=== PATIENT | female | born 1945 | race Caucasian/White ===

== ENCOUNTER 2016-07-14 13:15 | Outpatient (RCR) | payer MEDICARE, OTHER ==
[~2016-07-14 13:15] MED LIST: ALPRAZOLAM; AMITIZA24 MCG PO; ASPIR-LOW81 MG PO; ASPIRIN 32325 MG/TA1 PO; BACLOFEN10 MG PO; CALTRATE 600 +1 TAB PO; CARBAMAZEPINE200 M1 PO; COLACE 100100 MG/CAP PO; CYMBALTA 30MG30 MG PO; CYMBALTA 60MG60 MG PO; CYMBALTA PO; EVISTA 60MG60 MG/TAB PO; FERROUS SU325 MG/TAB PO; FOLIC ACID0.4 MG PO; GABAPENTIN600 MG PO; INTRATHECAL PUMP; K-99595 MG PO; KEPPRA500 MG PO; KLOR-CON M2020 MEQ PO; LASIX 20MG TABL20 MG PO; LASIX20 MG PO; LYRICA75 MG PO; MAGIC MOUTH PO; MAGNESIUM100 MG PO; MICRO-K 1010 MEQ; MILK OF MA400 MG/52; MULTIPLE VITAMI1 TAB PO; MVI; NAPROXEN250 MG PO; NATURAL POTASS595 MG PO; NEURONTIN PO; NEURONTIN300 MG/CAP PO; NEURONTIN400 MG/CAP PO; NEURONTIN600 MG/TAB PO; NORCO 325 MG-7.1 TAB PO; PERCOCET 325 MG1 TA2 PO; PERCOCET 325 MG1 TAB PO; PERCOCET 5/321 UDTAB PO; PLAQUENIL 200M200 MG PO; POTASSIUM75 MG PO; PRED FORTE 1 ML1 ML OP; RESTASIS 60VL OP; ROXICODONE 55 MG/TAB PO; SEE INSTRUCTIONS IT; SEE LIST; SEROQUEL 2525 MG/TAB PO; SYNTHROID0.112 MG/T PO; SYNTHROID0.175 MG PO; TEGRETOL 1100 MG/TAB PO; TEGRETOL 2200 MG/TAB PO; TOPAMAX 25MG25 MG PO; TOPAMAX100 MG PO; TOPAMAX50 MG PO; TOPIRAMATE PO; TRAZODONE50 MG PO; UROXATRAL10 M1 PO; VITAMIN C BUFF500 MG PO; VITAMIN C1 TAB PO; VITAMIN D1000 IU PO; XANAX0.25 MG PO; [UNRECOGNIZED DRUG - OTHER] PO; femhrt
== END 2016-07-20 | disposition home or self-care (01) ==
LOC: WSOT
DX: Z47.89 Encounter for other orthopedic aftercare (principal); M67.843 Other specified disorders of tendon, right hand
CPT/HCPCS: G8987-GO; G8988-GO

== ENCOUNTER 2016-09-23 14:30 | Outpatient (RCR) | payer MEDICARE, OTHER | END 2016-10-26 | disposition still patient (30) | LOC: WSOT | DX: Z47.89 Encounter for other orthopedic aftercare (principal); M67.843 Other specified disorders of tendon, right hand | CPT/HCPCS: G8987-GO; G8988-GO ==

== ENCOUNTER → 2016-12-21 | Outpatient (CLI) | payer MEDICARE, OTHER | LOC: MC.RAD 13:58 | DX: Z12.31 Encounter for screening mammogram for malignant neoplasm of breast (principal) ==

== ENCOUNTER 2017-08-02 14:58 | Outpatient (CLI) | payer MEDICARE, OTHER ==
[~2017-08-02] VITALS: Ht 157.5 cm; Wt 50.0 kg
[~2017-08-02 14:58] MED LIST changes: +MAG OX 250 PO; -MAGNESIUM100 MG PO; -VITAMIN D1000 IU PO; +VITAMIND3 5000 PO
[2017-08-02 16:20] VITALS: BP 121/63; PULSE 62; TEMP 98.4
[2017-08-02] MEDS ORDERED: SYNTHROID0.137 MG PO (16:47)
[2017-08-02] MEDS ORDERED: PROBIOTIC FORMU1 CAP PO (16:48)
[2017-08-02] MEDS ORDERED: MULTI VITAMINS1 TAB PO (16:49)
[2017-08-02] MEDS ORDERED: NATURAL IRON65 MG PO (16:50)
[2017-08-02] MEDS ORDERED: ASPIRIN E.C. 8181 MG PO (16:52)
[2017-08-02] MEDS ORDERED: DESYREL 50MG50 MG PO (16:59)
== END 2017-08-02 17:00 | disposition home or self-care (01) ==
LOC: EUO 14:58
DX: M81.0 Age-related osteoporosis without current pathological fracture (principal)
CPT/HCPCS: J3489

== ENCOUNTER → 2018-02-13 | Outpatient (CLI) | payer MEDICARE, OTHER ==
[~2018-02-13] MED LIST changes: +ASPIRIN E.C. 8181 MG PO; +DESYREL 50MG50 MG PO; +MULTI VITAMINS1 TAB PO; +NATURAL IRON65 MG PO; +PROBIOTIC FORMU1 CAP PO; +SYNTHROID0.137 MG PO
== END ==
LOC: MC.RAD 01-04 11:40
DX: Z12.31 Encounter for screening mammogram for malignant neoplasm of breast (principal)

== ENCOUNTER → 2018-02-26 | Outpatient (CLI) | payer MEDICARE, OTHER | LOC: COL.RAD 10:43 | DX: M41.84 Other forms of scoliosis, thoracic region (principal); M41.86 Other forms of scoliosis, lumbar region; M81.0 Age-related osteoporosis without current pathological fracture; M51.36 Other intervertebral disc degeneration, lumbar region; Z96.643 Presence of artificial hip joint, bilateral ==

== ENCOUNTER 2019-03-06 19:49 | Emergency (ER) | payer MEDICARE, OTHER ==
[~2019-03-06] VITALS: Ht 157.5 cm; Wt 49.1 kg
[2019-03-06 20:26] LABS: BASO # 0.1 (0.0-0.2); BASO % 0.9 % (0.0-2.0); GRAN # 3.5 (1.4-6.5); GRAN % 50.5 % (42.2-75.2); HEMOGLOBIN 10.7 g/dl (12.5-16.0); LYMPH # 2.7 (1.2-3.4); LYMPH % 38.6 % (20.0-51.0); MEAN CELL VOLUME 105 fl (80.0-100.0); MEAN CORPUSCULAR HEMOGLOBIN 34 pg (27.0-31.0); MEAN CORPUSCULAR HGB CONC 32 g/dl (33.0-37.0); MEAN PLATELET VOLUME 10.3 fl (7.4-10.4); MONO # 0.7 (0.1-0.6); MONO % 9.6 % (1.7-9.3); PLATELET COUNT 254 K/mm3 (130-400); RED BLOOD COUNT 3.18 M/mm3 (4.10-5.30); REDCELL DISTRIBUTION WIDTH-CV 12.8 % (11.5-14.5)
[2019-03-06 20:30] LABS: HEMATOCRIT 33.3 % (37.0-47.0)
[2019-03-06 20:40] LABS: ALANINE AMINOTRANSFERASE 34 U/L (9-52); ALBUMIN 4.4 gm/dL (3.5-5.0); ALKALINE PHOSPHATASE 65 U/L (50-136); ANION GAP 8 mmol/L (7-16); AST,SGOT 43 U/L (15-37); BILIRUBIN,TOTAL 0.5 mg/dL (0.0-1.0); BLOOD UREA NITROGEN 10 mg/dL (7-17); CALCIUM 9.1 mg/dL (8.4-10.2); CARBON DIOXIDE 27 mmol/L (22-30); CHLORIDE 106 mmol/L (98-107); CREATININE, serum 0.53 (0.52-1.25); GLUCOSE 86 mg/dL (74-106); POTASSIUM 3.4 mmol/L (3.4-5.0); SODIUM 140 mmol/L (137-145); TOTAL PROTEIN 7.1 gm/dL (6.4-8.2)
[2019-03-06 20:51] LABS: TROPONIN-I < 0.012 ng/mL (0.000-0.035)
[2019-03-06 21:46] VITALS: BP 105/66; PULSE 81; TEMP 98.2
== END 2019-03-06 21:45 | disposition home or self-care (01) ==
LOC: COL.ER 19:49
PROVIDERS: Emergency Medicine
DX: I47.1 Supraventricular tachycardia (principal); M79.7 Fibromyalgia; G62.9 Polyneuropathy, unspecified; Z79.82 Long term (current) use of aspirin

== ENCOUNTER → 2019-03-07 | Outpatient (CLI) | payer MEDICARE, OTHER | LOC: MC.RAD 14:34 | DX: Z12.31 Encounter for screening mammogram for malignant neoplasm of breast (principal) ==

== ENCOUNTER → 2019-03-27 | Outpatient (CLI) | payer MEDICARE, OTHER | LOC: COL.CARD 03-19 14:00 | DX: I48.0 Paroxysmal atrial fibrillation (principal) ==

== ENCOUNTER → 2019-05-09 | Outpatient (CLI) | payer MEDICARE, OTHER | LOC: COL.RAD 05-02 11:30 | DX: Z01.812 Encounter for preprocedural laboratory examination (principal); I65.23 Occlusion and stenosis of bilateral carotid arteries | CPT/HCPCS: Q9967 ==

== ENCOUNTER 2019-05-10 17:20 | Emergency (ER) | payer MEDICARE, OTHER ==
[~2019-05-10] VITALS: Ht 157.5 cm; Wt 48.2 kg
[2019-05-10 18:23] LABS: ALANINE AMINOTRANSFERASE 21 U/L (9-52); ALBUMIN 4.4 gm/dL (3.5-5.0); ALKALINE PHOSPHATASE 58 U/L (50-136); ANION GAP 8 mmol/L (7-16); AST,SGOT 31 U/L (15-37); BILIRUBIN,TOTAL 0.4 mg/dL (0.0-1.0); BLOOD UREA NITROGEN 14 mg/dL (7-17); CALCIUM 8.8 mg/dL (8.4-10.2); CARBON DIOXIDE 28 mmol/L (22-30); CHLORIDE 105 mmol/L (98-107); CREATININE, serum 0.63 (0.52-1.25); GLUCOSE 89 mg/dL (74-106); POTASSIUM 3.9 mmol/L (3.4-5.0); SODIUM 141 mmol/L (137-145); TOTAL PROTEIN 7.1 gm/dL (6.4-8.2)
[2019-05-10 18:28] LABS: BASO # 0.1 (0.0-0.2); GRAN # 3.6 (1.4-6.5); GRAN % 52.1 % (42.2-75.2); HEMOGLOBIN 11.6 g/dl (12.5-16.0); LYMPH # 2.8 (1.2-3.4); LYMPH % 40.3 % (20.0-51.0); MEAN CELL VOLUME 101 fl (80.0-100.0); MEAN CORPUSCULAR HEMOGLOBIN 32 pg (27.0-31.0); MEAN CORPUSCULAR HGB CONC 32 g/dl (33.0-37.0); MEAN PLATELET VOLUME 10.5 fl (7.4-10.4); MONO # 0.4 (0.1-0.6); MONO % 6.3 % (1.7-9.3); PLATELET COUNT 209 K/mm3 (130-400); RED BLOOD COUNT 3.62 M/mm3 (4.10-5.30)
[2019-05-10 18:32] LABS: HEMATOCRIT 36.7 % (37.0-47.0)
[2019-05-10 18:34] LABS: INR 1.1 (0.8-3.0); PROTHROMBIN TIME 13.3 SECONDS (9.7-12.8); TROPONIN-I < 0.012 ng/mL (0.000-0.035)
[2019-05-10 18:37] LABS: PARTIAL THROMBOPLASTIN TIME 37.8 SECONDS (26.0-37.0)
[2019-05-10 19:20] VITALS: BP 115/69; PULSE 75; TEMP 98.4
== END 2019-05-10 19:24 | disposition home or self-care (01) ==
LOC: COL.ER 17:20
PROVIDERS: Emergency Medicine
DX: I48.0 Paroxysmal atrial fibrillation (principal); E03.9 Hypothyroidism, unspecified; M81.0 Age-related osteoporosis without current pathological fracture; L93.0 Discoid lupus erythematosus; Z79.01 Long term (current) use of anticoagulants

== ENCOUNTER 2019-09-16 01:26 | Inpatient (IN) | payer MEDICARE, OTHER ==
[2019-09-16] VITALS (875 sets, daily range): BP systolic 91–110; BP diastolic 60–78; PULSE 73–99; TEMP 97–98.4; O2SAT 59–100
[~2019-09-16] VITALS: Ht 157.5 cm; Wt 48.0 kg
[~2019-09-16 01:26] MED LIST changes: -COLACE 100100 MG/CAP PO; -NEURONTIN600 MG/TAB PO; +SURFAK 240240 MG/CAP PO; +SYNTHROID 0.10.15 MG PO; -SYNTHROID0.137 MG PO
[2019-09-16 02:00] LABS: BASO # 0.1 (0.0-0.2); BASO % 0.7 % (0.0-2.0); GRAN # 4.6 (1.4-6.5); GRAN % 65.7 % (42.2-75.2); HEMATOCRIT 29.9 % (37.0-47.0); HEMOGLOBIN 9.6 g/dl (12.5-16.0); LYMPH # 1.5 (1.2-3.4); LYMPH % 22.2 % (20.0-51.0); MEAN CELL VOLUME 99 fl (80.0-100.0); MEAN CORPUSCULAR HEMOGLOBIN 32 pg (27.0-31.0); MEAN CORPUSCULAR HGB CONC 32 g/dl (33.0-37.0); MEAN PLATELET VOLUME 10.7 fl (7.4-10.4); MONO # 0.7 (0.1-0.6); MONO % 10.2 % (1.7-9.3); PLATELET COUNT 193 K/mm3 (130-400); RED BLOOD COUNT 3.03 M/mm3 (4.10-5.30); REDCELL DISTRIBUTION WIDTH-CV 12.1 % (11.5-14.5)
[2019-09-16 02:02] LABS: INR 1.5 (0.8-3.0); PROTHROMBIN TIME 17.8 SECONDS (9.7-12.8)
[2019-09-16 02:08] LABS: BILIRUBIN,TOTAL 0.6 mg/dL (0.0-1.0); CALCIUM 9.3 mg/dL (8.4-10.2); CREATININE, serum 0.6 (0.52-1.25); POTASSIUM 4.4 mmol/L (3.4-5.0); TOTAL PROTEIN 6.6 gm/dL (6.4-8.2)
[2019-09-16 02:19] LABS: TROPONIN-I 0.022 ng/mL (0.000-0.035)
[2019-09-16 02:41] LABS: ALCOHOL(ethanol),MEDICAL < 10 mg/dL
[2019-09-16 03:31] LABS: COLLECTION METHOD CLEAN CATCH
[2019-09-16 03:36] LABS: MUCOUS Present /lpf; PH 5 (5-8); SQUAMOUS EPITHELIAL 0-2 /hpf; URINE APPEARANCE Clear; URINE BACTERIA None Seen /hpf; URINE BILIRUBIN Negative (NEGATIVE); URINE BLOOD Negative (NEGATIVE); URINE COLOR Amber; URINE GLUCOSE Negative (NEGATIVE); URINE KETONE 1+ (NEGATIVE); URINE LEUKOCYTE ESTERASE Negative (NEGATIVE); URINE NITRATE Negative (NEGATIVE); URINE PROTEIN(semi-quant) Negative (NEGATIVE); URINE UROBILINOGEN Negative (NEGATIVE)
[2019-09-16] MEDS ORDERED: CARDIZEM120 MG PO (04:42)
[2019-09-16] MEDS ORDERED: ELIQUIS 5MG PO (04:43)
[2019-09-16] MEDS ORDERED: AZULFIDINE500 MG/TAB PO (04:43)
[2019-09-16] MEDS ORDERED: PLAQUENIL 200M200 MG PO (04:44)
[2019-09-16] MEDS ORDERED: CYMBALTA 60MG60 MG PO (04:45)
[2019-09-16] MEDS ORDERED: LINZESS145CAP PO (04:46)
[2019-09-16] MEDS ORDERED: PROBIOTIC-10 370 MG PO (04:47)
[2019-09-16] MEDS ORDERED: COMPLETE MULTI1 TA1 PO (04:48)
[2019-09-16] MEDS ORDERED: LOVAZA1 GM PO (04:49)
[2019-09-16] MEDS ORDERED: RESTASIS 60VL (04:52)
[2019-09-16] MEDS ORDERED: LIPITOR 10MG10 MG PO (04:54)
--- NOTE | 2019-09-16 06:05 | NUR ---
SOMULENT. VS WNL. ROUSES BRIEFLY TO VOICE. FOLLOWS COMMANDS. NARCAN ADMIN. CONTINUES DROWSY, BUT SEEMS SLIGHTLY MORE ALERT. DENIES PAIN AT AREA OF LACERATION.
--- NOTE | 2019-09-16 07:30 | NUR ---
Report received from KAMRNA Wasserman. pT in bed resting with eyes closed, will continue to monitor.
--- NOTE | 2019-09-16 11:24 | NUR ---
JAMES met with the patient to discuss discharge plan. The patient lives in [place] with her , Bruno (ph#[phone]). Her son, Rodney, has been staying with them during the COVID outbreak to help them out. She reports independence with ADLs and has a cane and walker. The patient's PCP is Dr. Tabitha Crook and she receives her medications at [facility]. She reports no difficulties obtaining her meds. The patient does not have advanced directives in EMR, but she reports that she does have them completed. She could not recall who she had designated as her DPOA-HC. The patient would like to return back home upon discharge. JAMES then contacted and confirmed the above information from her , Bruno. Bruno reports that he is the patient's DPOA-HC. He has no concerns with the patient returning back home upon discharge. PT/OT have been ordered. SW to continue to follow.
--- NOTE | 2019-09-16 11:37 | NUR ---
Karol crawforded. Dr. Sanchez roundsusan during visit. Pt is more alert and awake now, able to take some breakfast wihtout difficulty. Able to answer all orientation questions except the specific day in September, able to tell me its September 2019 though. Denies pain. Has no recollection of last night but does reember coming in the ambulance. Disucssed lacerations on pt, she did not recall getting them. Called with an update and provided, he states has severe fibromyalgia and difficulty sleeping often at night. PT denies any pain now, resting quietly in bed. Will continue to monitor.
--- NOTE | 2019-09-16 14:18 | NUR ---
Pt contineus to be very somnolent, called Dr. Sanchez and gave 1x order for narcan, provided. Pt did awaken a bit more after administration of Narcan. Pt is drowsy. Critical lab value called to Laura as well, ultrasound in room right now doing dopplar. Will continue to monitor.
[2019-09-16 15:48] LABS: TRICYCLIC ANTIDEPRESS URINE NEGATIVE
--- NOTE | 2019-09-16 16:00 | NUR ---
Called Dr. Espinoza office and discussed pain pump, per nurse at the office pt has pain pump at set rate for years that was changed out last monday and set back at regular rate. there is a possibility that it is malfunctioning. Called Laura and updated. Pt remains very somnolent and wanted hime to reassess, he feels she is just very sleepy but no need for further narcan at this time.
--- NOTE | 2019-09-16 17:59 | NUR ---
Pt continues to be very drowsy, resting in bed. Denies needs, will give shift report to nightshift nurse who will resume care.
[2019-09-17] VITALS (886 sets, daily range): BP systolic 97–116; BP diastolic 55–63; PULSE 75–96; TEMP 96.6–98.5; O2SAT 69–100
--- NOTE | 2019-09-17 07:15 | NUR ---
Bedside shift report received from KAMRAN Alfaro. Patient is sitting up in bed, awake, alert, following commands and responding appropriately. Full assessment completed. Vital signs stable. Bed in lowest position. Side rails up x3. Call light within reach.
[2019-09-17 10:25] LABS: MEAN CELL VOLUME 102 fl (80.0-100.0); MEAN CORPUSCULAR HEMOGLOBIN 33 pg (27.0-31.0); MEAN CORPUSCULAR HGB CONC 32 g/dl (33.0-37.0); MEAN PLATELET VOLUME 10.7 fl (7.4-10.4); PLATELET COUNT 139 K/mm3 (130-400); RED BLOOD COUNT 3.38 M/mm3 (4.10-5.30); REDCELL DISTRIBUTION WIDTH-CV 12.4 % (11.5-14.5)
[2019-09-17 10:28] LABS: CALCIUM 8.1 mg/dL (8.4-10.2); CREATININE, serum 0.35 (0.52-1.25); POTASSIUM 3.3 mmol/L (3.4-5.0)
[2019-09-17 10:29] LABS: HEMATOCRIT 34.3 % (37.0-47.0)
[2019-09-17 11:35] LABS: BAND 25 % (0-10); LYMPHOCYTE 15 % (20.0-51.0); NEUTROPHILS 54 % (42.0-75.2); PLATELET ESTIMATE NORMAL (NORMAL); TOXIC GRANULATION PRESENT
[2019-09-17 11:36] LABS: HYPOCHROMIA 1+
[2019-09-17] MEDS ORDERED: CARDIZEM 90MG T90 MG PO (13:39)
[2019-09-17] MEDS ORDERED: SYNTHROID0.125 MG/T PO (13:41)
--- NOTE | 2019-09-17 14:14 | NUR ---
The hospitalist informed JAMES that he would recommend home health for the patient. JAMES contacted the patient's , Bruno, to discuss home health. Bruno was agreeable to this. Bruno chose [facility]. JAMES contacted and faxed a referral to Lyric at [facility]. SW awaiting their screen.
--- NOTE | 2019-09-17 14:29 | NUR ---
Lyric, at [facility], reports that they are able to accept the patient for services.
--- NOTE | 2019-09-17 19:35 | NUR ---
Bedside shift report given to KAMRAN Nazario. Patient has no acute changes throughout the shift and has no complaints or concerns. Care handed over at this time.
[2019-09-18] VITALS (401 sets, daily range): BP systolic 122–164; BP diastolic 49–89; PULSE 59–100; TEMP 97.9–98.9; O2SAT 65–100
[2019-09-18 06:22] LABS: BASO # 0.1 (0.0-0.2); BASO % 0.5 % (0.0-2.0); GRAN # 9.7 (1.4-6.5); GRAN % 79.5 % (42.2-75.2); LYMPH # 1.5 (1.2-3.4); LYMPH % 12.4 % (20.0-51.0); MEAN CELL VOLUME 102 fl (80.0-100.0); MEAN CORPUSCULAR HGB CONC 32 g/dl (33.0-37.0); MEAN PLATELET VOLUME 10.6 fl (7.4-10.4); MONO # 0.8 (0.1-0.6); MONO % 6.3 % (1.7-9.3); PLATELET COUNT 186 K/mm3 (130-400); RED BLOOD COUNT 2.51 M/mm3 (4.10-5.30); REDCELL DISTRIBUTION WIDTH-CV 12.5 % (11.5-14.5)
[2019-09-18 06:23] LABS: CALCIUM 8.3 mg/dL (8.4-10.2); CREATININE, serum 0.46 (0.52-1.25); POTASSIUM 3.4 mmol/L (3.4-5.0)
[2019-09-18 06:46] LABS: HEMATOCRIT 25.6 % (37.0-47.0); HEMOGLOBIN 8.1 g/dl (12.5-16.0); MEAN CORPUSCULAR HEMOGLOBIN 32 pg (27.0-31.0)
--- NOTE | 2019-09-18 07:37 | NUR ---
Notified Dr. Sanchez of patient's hemoglobin drop from 11 to 8.1. No orders received at this time.
--- NOTE | 2019-09-18 09:44 | NUR ---
Assessment completed, alert/partially oriented, vital signs stable, denies any acute pain or discomfort/ stated has chronic Neuropathy pains that are present as always, has implanted pain pump/ site covered with dressing, patient has Lacerations to right scalp and above right eyes/ well approximated and sutures intact, heart RRR, lungs CTA/ denies any resp. difficulty, weened off of oxygen and as of now sats are 91-94% on room air, she denies other needs at this time, will continue to monitor
--- NOTE | 2019-09-18 14:00 | NUR ---
Patient to room via wheelchair from ICU. Alert and oriented x4. When asked a question, at times it takes the patient a second to think before she is able to answer. Lacerations to right yazidi and eyebrow area with edges well approximated, sutures intact, no redness/swelling/discharge from sites. Patient denies pain. Patient denies needs at this time.
--- NOTE | 2019-09-18 14:00 | NUR ---
Patient is transferring to Medical room 356, I have called and given report to receiving nurse KAMRAN Mars, patient transferred via wheelchair at this time
--- NOTE | 2019-09-18 14:17 | NUR ---
The patient tranferred to the medical unit today. SW contacted and updated the patient's , Bruno. The patient may need oxygen upon discharge. SW to continue to follow.
--- NOTE | 2019-09-18 16:21 | NUR ---
Lying in bed with eyes open. Patient remains alert, gets lost for words at times. Says that she is not having any more pain than what she normally has. Denies needs at this time.
--- NOTE | 2019-09-18 22:21 | NUR ---
Received report from KAMRAN Mars. Alert and oriented. Denies any pain or discomfort at this time. Standby assist from recliner chair to bed. Tele monitor in place, INT to LFA intact, flushed, dressing CDI. Dressing in place to Rt abdomen, CDI, from pain pump placement. Sutures intact to RT eyebrow and RT temporal. Meds administered as ordered. Needs met at this time. Call light within reach.
--- NOTE | 2019-09-18 22:26 | NUR ---
Pt requested to shower. Standby assist pt from bed to shower. Wrapped INT to LFA and covered abdomial dressing with plastic. Assisted pt as needed with shower and getting dressed. Ambulated well, steady gait. Needs met. Tele monitor placed back on. Call light within reach.
[2019-09-19 04:11] VITALS: BP 134/54; PULSE 88; TEMP 98.6
--- NOTE | 2019-09-19 05:40 | NUR ---
standby assist pt to BR multiple time during the night. Pt slept a few hours during the night. Pt awake at this time watching TV. Meds adminsitered. Needs met. Call light within reach.
[2019-09-19 06:14] LABS: BASO # 0.1 (0.0-0.2); BASO % 0.5 % (0.0-2.0); EOS % 0.3 % (0-4.0); GRAN # 8.2 (1.4-6.5); LYMPH # 1.5 (1.2-3.4); LYMPH % 14.1 % (20.0-51.0); MEAN CELL VOLUME 102 fl (80.0-100.0); MEAN CORPUSCULAR HGB CONC 32 g/dl (33.0-37.0); MEAN PLATELET VOLUME 10.1 fl (7.4-10.4); MONO # 0.6 (0.1-0.6); MONO % 5.8 % (1.7-9.3); PLATELET COUNT 207 K/mm3 (130-400); RED BLOOD COUNT 2.62 M/mm3 (4.10-5.30); REDCELL DISTRIBUTION WIDTH-CV 12.5 % (11.5-14.5)
[2019-09-19 06:19] LABS: HEMATOCRIT 26.7 % (37.0-47.0); HEMOGLOBIN 8.4 g/dl (12.5-16.0); MEAN CORPUSCULAR HEMOGLOBIN 32 pg (27.0-31.0)
[2019-09-19 06:25] LABS: CALCIUM 8.7 mg/dL (8.4-10.2); CREATININE, serum 0.36 (0.52-1.25); POTASSIUM 3.4 mmol/L (3.4-5.0)
--- NOTE | 2019-09-19 06:54 | NUR ---
Report given to KAMRAN Chao.
[2019-09-19 07:15] VITALS: BP 148/64; PULSE 82; TEMP 98.4
--- NOTE | 2019-09-19 09:34 | NUR ---
PT IN BED, BED IN LOW POSITION, CALL LIGHT AND WATER AT BEDSIDE, PT NOT COMPLAINING OF PAIN, WHEN ASKED SHE SAID "NOT ANY MORE THAN USUAL", PT APPEARS COMFORTABLE, CONTRACTOR BROOMCORN THRESHING EQUAL, BILATERAL LOWER LOBES DIMINISHED. MEDS GIVEN, ASSESSMENT PERFORMED, NO OTHER NEEDS AT THIS TIME.
[2019-09-19] MEDS ORDERED: DOXYCYCLINE HY100 MG PO (09:40)
--- NOTE | 2019-09-19 11:58 | NUR ---
PT LEFT FLOOR WITH BELONGINGS VIA WHEELCHAIR. WITNESSED GETTING INTO PT 'S WHITE VEHICLE. INT DC'D, TELE REMOVED, NO OTHER NEEDS AT THIS TIME.
--- NOTE | 2019-09-20 10:35 | NUR ---
(late entry 5-7) The patient discharged 09/18 with [facility]. SW faxed discharge orders. There are no additional needs.
== END 2019-09-19 11:59 | disposition home health service (06) | DRG 193 ==
LOC: COL.ER 01:26 → IMCU 03:41 → ICU 09-18 10:58 → IMCU 09-18 10:58 → MEDICAL 09-18 13:59
PROVIDERS: Emergency Medicine; Nurse Practitioner; Student in an Organized Health Care Education/Training Program; ADMIT Internal Medicine
PROC: 0HQ1XZZ Repair Face Skin, External Approach (ICD-10-PCS; principal; 2019-09-16)
DX: J18.9 Pneumonia, unspecified organism (principal); G92 Toxic encephalopathy; J96.01 Acute respiratory failure with hypoxia; R55 Syncope and collapse; I48.91 Unspecified atrial fibrillation; E03.9 Hypothyroidism, unspecified; F41.8 Other specified anxiety disorders; M32.9 Systemic lupus erythematosus, unspecified; S01.81XA Laceration without foreign body of other part of head, initial encounter; W18.30XA Fall on same level, unspecified, initial encounter; Y92.012 Bathroom of single-family (private) house as the place of occurrence of the external cause; M79.7 Fibromyalgia; G62.9 Polyneuropathy, unspecified; Z87.891 Personal history of nicotine dependence; G47.00 Insomnia, unspecified; E86.0 Dehydration; T40.2X5A Adverse effect of other opioids, initial encounter; T42.6X5A Adverse effect of other antiepileptic and sedative-hypnotic drugs, initial encounter; T43.215A Adverse effect of selective serotonin and norepinephrine reuptake inhibitors, initial encounter; Z79.01 Long term (current) use of anticoagulants; R60.0 Localized edema; I48.0 Paroxysmal atrial fibrillation
CPT/HCPCS: 99223-AI; 99232-AI; 99233-AI; 99239; J0696; J1650; J2310; J7030; Q9967

== ENCOUNTER 2019-09-20 11:15 | Emergency (ER) | payer MEDICARE, OTHER ==
[~2019-09-20] VITALS: Ht 157.5 cm; Wt 45.5 kg
[~2019-09-20 11:15] MED LIST changes: +AZULFIDINE500 MG/TAB PO; +CARDIZEM 90MG T90 MG PO; +CARDIZEM120 MG PO; +COMPLETE MULTI1 TA1 PO; +DOXYCYCLINE HY100 MG PO; +ELIQUIS 5MG PO; +LINZESS145CAP PO; +LIPITOR 10MG10 MG PO; +LOVAZA1 GM PO; +PROBIOTIC-10 370 MG PO; +RESTASIS 60VL; +SYNTHROID0.125 MG/T PO
[2019-09-20 11:17] VITALS: TEMP 98.2
[2019-09-20 12:02] LABS: MEAN CELL VOLUME 102 fl (80.0-100.0); MEAN CORPUSCULAR HGB CONC 32 g/dl (33.0-37.0); PLATELET COUNT 280 K/mm3 (130-400); RED BLOOD COUNT 3.06 M/mm3 (4.10-5.30); REDCELL DISTRIBUTION WIDTH-CV 12.6 % (11.5-14.5)
[2019-09-20 12:10] LABS: HEMATOCRIT 31.1 % (37.0-47.0); HEMOGLOBIN 9.8 g/dl (12.5-16.0); MEAN CORPUSCULAR HEMOGLOBIN 32 pg (27.0-31.0)
[2019-09-20 12:19] LABS: ALBUMIN 4.2 gm/dL (3.5-5.0); BILIRUBIN,TOTAL 0.8 mg/dL (0.0-1.0); C-REACTIVE PROTEIN 6.7 mg/dL (0.0-0.9); CALCIUM 9.8 mg/dL (8.4-10.2); CREATININE, serum 0.44 (0.52-1.25); POTASSIUM 4.6 mmol/L (3.4-5.0); TOTAL PROTEIN 7.4 gm/dL (6.4-8.2)
[2019-09-20 12:39] LABS: BAND 18 % (0-10); LYMPHOCYTE 12 % (20.0-51.0); METAMYELOCYTE 2 % (0-0); MYELOCYTE 2 % (0-0); NEUTROPHILS 63 % (42.0-75.2); PLATELET ESTIMATE NORMAL (NORMAL)
[2019-09-20 12:42] LABS: COLLECTION METHOD CATHETER
[2019-09-20 12:55] LABS: HYALINE CAST >12 /lpf; MUCOUS Present /lpf; PH 7 (5-8); SQUAMOUS EPITHELIAL 0-2 /hpf; URINE APPEARANCE Hazy; URINE BACTERIA Rare /hpf; URINE BILIRUBIN Negative (NEGATIVE); URINE BLOOD Negative (NEGATIVE); URINE COLOR Amber; URINE GLUCOSE Negative (NEGATIVE); URINE KETONE 1+ (NEGATIVE); URINE LEUKOCYTE ESTERASE Trace (NEGATIVE); URINE NITRATE Negative (NEGATIVE); URINE PROTEIN(semi-quant) Negative (NEGATIVE); URINE UROBILINOGEN Negative (NEGATIVE)
[2019-09-20 16:12] VITALS: BP 128/88; PULSE 86
[2019-09-20 22:54] LABS: FOLATE (FOLIC ACID) 16.2 ng/mL (7.0-31.4)
== END 2019-09-20 16:36 | disposition home or self-care (01) ==
LOC: COL.ER 11:15
PROVIDERS: Emergency Medicine; Physician Assistant
DX: N39.0 Urinary tract infection, site not specified (principal); J18.9 Pneumonia, unspecified organism; R11.10 Vomiting, unspecified; I48.91 Unspecified atrial fibrillation; Z79.82 Long term (current) use of aspirin
CPT/HCPCS: J0696; J1940; J2405; J7030

== ENCOUNTER → 2019-10-02 | Outpatient (CLI) | payer MEDICARE, OTHER | LOC: COL.RAD 14:44 | DX: G31.9 Degenerative disease of nervous system, unspecified (principal); I67.82 Cerebral ischemia ==

== ENCOUNTER → 2019-10-04 | Outpatient (CLI) | payer MEDICARE, OTHER | LOC: COL.RAD 12:14 | DX: S79.911A Unspecified injury of right hip, initial encounter (principal) ==

== ENCOUNTER 2019-10-12 02:46 | Emergency (ER) | payer MEDICARE, OTHER ==
[~2019-10-12] VITALS: Ht 157.5 cm; Wt 47.3 kg
[2019-10-12 02:50] VITALS: TEMP 98.2
[2019-10-12 03:25] LABS: BASO % 0.5 % (0.0-2.0); EOS % 0.2 % (0-4.0); GRAN # 3.7 (1.4-6.5); GRAN % 65.5 % (42.2-75.2); HEMATOCRIT 28.9 % (37.0-47.0); HEMOGLOBIN 8.7 g/dl (12.5-16.0); LYMPH # 1.4 (1.2-3.4); MEAN CELL VOLUME 103 fl (80.0-100.0); MEAN CORPUSCULAR HEMOGLOBIN 31 pg (27.0-31.0); MEAN CORPUSCULAR HGB CONC 30 g/dl (33.0-37.0); MONO # 0.5 (0.1-0.6); MONO % 8.4 % (1.7-9.3); PLATELET COUNT 218 K/mm3 (130-400); RED BLOOD COUNT 2.81 M/mm3 (4.10-5.30); REDCELL DISTRIBUTION WIDTH-CV 13.3 % (11.5-14.5)
[2019-10-12 03:34] LABS: ALBUMIN 3.4 gm/dL (3.5-5.0); BILIRUBIN,TOTAL 0.5 mg/dL (0.0-1.0); CALCIUM 8.5 mg/dL (8.4-10.2); CREATININE, serum 0.69 (0.52-1.25); POTASSIUM 3.5 mmol/L (3.4-5.0); TOTAL PROTEIN 6.1 gm/dL (6.4-8.2)
[2019-10-12 03:50] LABS: PROLACTIN 17.5 ng/mL (3.0-18.6)
[2019-10-12 06:01] VITALS: BP 98/57; PULSE 87
== END 2019-10-12 07:03 | disposition home or self-care (01) ==
LOC: COL.ER 02:46
PROVIDERS: Emergency Medicine
DX: R56.9 Unspecified convulsions (principal); G47.00 Insomnia, unspecified; F32.9 Major depressive disorder, single episode, unspecified; F41.9 Anxiety disorder, unspecified; M79.7 Fibromyalgia; E03.9 Hypothyroidism, unspecified; Z79.82 Long term (current) use of aspirin
CPT/HCPCS: J2060; J2310

== ENCOUNTER → 2019-10-23 | Outpatient (CLI) | payer MEDICARE, OTHER | LOC: COL.VAS 10-18 14:00 | DX: F09 Unspecified mental disorder due to known physiological condition (principal); R60.0 Localized edema; I08.1 Rheumatic disorders of both mitral and tricuspid valves; G31.9 Degenerative disease of nervous system, unspecified; I67.82 Cerebral ischemia | CPT/HCPCS: A9585 ==

== ENCOUNTER 2020-02-19 15:00 | Outpatient (RCR) | payer MEDICARE, OTHER | END 2020-03-25 | disposition home or self-care (01) | LOC: WSST | DX: F03.90 Unspecified dementia, unspecified severity, without behavioral disturbance, psychotic disturbance, mood disturbance, and anxiety (principal); F01.50 Vascular dementia, unspecified severity, without behavioral disturbance, psychotic disturbance, mood disturbance, and anxiety ==

== ENCOUNTER → 2020-03-30 | Outpatient (CLI) | payer MEDICARE, OTHER | LOC: MC.RAD 03-10 14:45 | DX: Z12.31 Encounter for screening mammogram for malignant neoplasm of breast (principal); Z78.0 Asymptomatic menopausal state ==

== ENCOUNTER 2020-04-15 15:07 | Outpatient (CLI) | payer MEDICARE, OTHER ==
[~2020-04-15] VITALS: Ht 157.5 cm; Wt 46.0 kg
[2020-04-15 15:32] VITALS: BP 102/56; PULSE 62; TEMP 98
== END 2020-04-15 16:30 | disposition home or self-care (01) ==
LOC: EUO 15:07
DX: M81.0 Age-related osteoporosis without current pathological fracture (principal)
CPT/HCPCS: J3489

== ENCOUNTER 2021-03-12 14:41 | Outpatient (CLI) | payer MEDICARE, OTHER ==
[~2021-03-12] VITALS: Ht 157.5 cm; Wt 48.5 kg
[2021-03-12] MEDS ORDERED: ARICEPT10 MG PO (15:06)
[2021-03-12 15:20] VITALS: BP 150/73; PULSE 62; TEMP 98.4
== END 2021-03-12 15:32 | disposition home or self-care (01) ==
LOC: EUO 14:41
DX: M81.0 Age-related osteoporosis without current pathological fracture (principal)
CPT/HCPCS: J3489

== ENCOUNTER → 2021-05-05 | Outpatient (CLI) | payer MEDICARE, OTHER ==
[~2021-05-05] MED LIST changes: +ARICEPT10 MG PO
== END ==
LOC: MC.RAD 14:30
DX: Z12.31 Encounter for screening mammogram for malignant neoplasm of breast (principal)

== ENCOUNTER 2022-01-29 18:14 | Observation (INO) | payer MEDICARE, OTHER ==
[~2022-01-29] VITALS: Ht 157.5 cm; Wt 51.9 kg
[~2022-01-29 18:14] MED LIST changes: -RESTASIS 60VL; +RESTASIS0.05% OP
[2022-01-29 19:24] LABS: BASO # 0.1 K/mm3 (0.0-0.2); BASO % 0.9 % (0.0-2.0); GRAN # 6.1 K/mm3 (1.4-6.5); GRAN % 63.4 % (42.2-75.2); HEMOGLOBIN 11.6 g/dl (12.5-16.0); LYMPH # 2.7 K/mm3 (1.2-3.4); LYMPH % 27.7 % (20.0-51.0); MEAN CELL VOLUME 98 fl (80.0-100.0); MEAN CORPUSCULAR HEMOGLOBIN 32 pg (27-31); MEAN CORPUSCULAR HGB CONC 33 g/dl (33.0-37.0); MEAN PLATELET VOLUME 10.4 fl (7.4-10.4); MONO # 0.7 K/mm3 (0.1-0.6); MONO % 7.4 % (1.7-9.3); PLATELET COUNT 220 K/mm3 (130-400); RED BLOOD COUNT 3.59 M/mm3 (4.10-5.30); REDCELL DISTRIBUTION WIDTH-CV 12.8 % (11.5-14.5)
[2022-01-29 19:26] LABS: HEMATOCRIT 35.1 % (37.0-47.0)
[2022-01-29] MEDS ORDERED: TIROSINT125 MC1 PO (19:31)
[2022-01-29] MEDS ORDERED: CARDIZEM120 MG PO (19:33)
[2022-01-29] MEDS ORDERED: NEURONTIN300 MG/CAP PO (19:34)
[2022-01-29] MEDS ORDERED: SURFAK 240240 MG/CAP PO (19:37)
[2022-01-29] MEDS ORDERED: ASPIRIN 81M81 MG/TA2 PO (19:40)
[2022-01-29 19:46] LABS: ALBUMIN 4.1 gm/dL (3.4-4.8); BILIRUBIN,TOTAL 0.5 mg/dL (0.2-1.2); C-REACTIVE PROTEIN 0.36 mg/dL (0.00-0.50); CALCIUM 9.8 mg/dL (8.4-10.2); CREATININE, serum 0.75 mg/dL (0.57-1.11); POTASSIUM 3.7 mmol/L (3.5-4.5); TOTAL PROTEIN 6.6 gm/dL (6.2-8.1)
[2022-01-29 21:51] VITALS: BP 142/66; PULSE 68; TEMP 98.7
--- NOTE | 2022-01-29 22:00 | NUR ---
PATIENT WAS RECEIVED FROM ED ON A WHEELCHAIR.PATIENT IS ALERT AND ORIENTED.ADMISSION ORIENTATION DONE.PATIENT IS INDEPENDENT IN THE ROOM.DUE MEDICATION ADMINISTERED PER EMAR.PATIENT WAS REQUESTING FOR CYCLOSPORINE EYE DROPS NIGHT PROVIDER INFORMED BUT NOT AVAILABLE.PATIENT WAS INFORMED ABOUT THE SAME.PATIENT HAS AN OPEN WOUND ON THE LLE NOT DRAINING.NIGHT PROVIDER STATED THAT WE LEAVE IT OPEN TO AIR.PATIENT WAS OFFERED FOOD.NO OTHER NEEDS AT THIS TIME.
[2022-01-29] MEDS ORDERED: PERCOCET 325 MG1 TA3 PO (22:32)
--- NOTE | 2022-01-29 23:37 | NUR ---
Vancomycin Initial Dosing Pharmacy Note Ordering provider: Elias William MD Indication/duration: Cellulitis x 5 days Relevant comorbidities: N/A LABS: WBC = 9.6, SCr = 0.75 Recommendation: Will draw troughs and follow levels. Loading dose: 1.5 grams Maintenance dose: 1 gram every 24 hours Trough goal: 10-15 ug/mL
[2022-01-30] VITALS (7 sets, daily range): BP systolic 106–139; BP diastolic 50–94; PULSE 60–74; TEMP 97.7–98.7
--- NOTE | 2022-01-30 06:06 | NUR ---
PATIENT TAKES AM PILL.PATIENT HAS AN IMPLANTED MORPHINE PUMP ON THE RT LOWER ABD AND A LOOP RECORDER ON THE LT CHEST.NO PAIN REPORTED THIS MORNING.PATIENT IS UP AT [facility].NO OTHER NEEDS AT THIS TIME.
[2022-01-30 06:16] LABS: BASO # 0.1 K/mm3 (0.0-0.2); BASO % 0.8 % (0.0-2.0); EOS # 0.1 K/mm3 (0.0-0.7); EOS % 1.6 % (0.0-4.0); GRAN # 2.8 K/mm3 (1.4-6.5); GRAN % 46.4 % (42.2-75.2); LYMPH # 2.5 K/mm3 (1.2-3.4); LYMPH % 41.5 % (20.0-51.0); MEAN CELL VOLUME 101 fl (80.0-100.0); MEAN CORPUSCULAR HGB CONC 32 g/dl (33.0-37.0); MEAN PLATELET VOLUME 10.7 fl (7.4-10.4); MONO # 0.6 K/mm3 (0.1-0.6); MONO % 9.2 % (1.7-9.3); PLATELET COUNT 178 K/mm3 (130-400); RED BLOOD COUNT 2.91 M/mm3 (4.10-5.30); REDCELL DISTRIBUTION WIDTH-CV 12.9 % (11.5-14.5)
[2022-01-30 06:19] LABS: HEMATOCRIT 29.5 % (37.0-47.0); MEAN CORPUSCULAR HEMOGLOBIN 32 pg (27-31)
[2022-01-30 06:22] LABS: HEMOGLOBIN 9.4 g/dl (12.5-16.0)
[2022-01-30 06:27] LABS: CALCIUM 8.2 mg/dL (8.4-10.2); CREATININE, serum 0.62 mg/dL (0.57-1.11); MAGNESIUM 1.8 mg/dL (1.6-2.6); POTASSIUM 3.7 mmol/L (3.5-4.5)
--- NOTE | 2022-01-30 11:38 | NUR ---
SW met with patient to complete intake. Patient states that she lives with her Bruno [phone] in [facility]. Patient provides that she does not utilize DME, and is independent with ADL's. Patient does not utilize HH services at this time. PCP is Dr. Crook, and pharmacy is [facility]. DPOA/HC is spouse. Patient states that she plans to return to her home upon DC and has no questions or concerns to follow. SW will continue to follow. DC plan: home
--- NOTE | 2022-01-30 18:14 | NUR ---
pt had a pleasant day, vs stable, orient and alert x4, due medication given as prescribed all well tolarated, had a complaints ao pain to the LLE which improved with pain medications.
[2022-01-31 03:10] VITALS: BP 135/65; PULSE 61; TEMP 97.8
[2022-01-31 06:09] LABS: BASO # 0.1 K/mm3 (0.0-0.2); BASO % 0.8 % (0.0-2.0); GRAN # 3.8 K/mm3 (1.4-6.5); HEMOGLOBIN 10.8 g/dl (12.5-16.0); LYMPH % 39.9 % (20.0-51.0); MEAN CELL VOLUME 99 fl (80.0-100.0); MEAN CORPUSCULAR HEMOGLOBIN 33 pg (27-31); MEAN CORPUSCULAR HGB CONC 33 g/dl (33.0-37.0); MEAN PLATELET VOLUME 10.9 fl (7.4-10.4); MONO # 0.6 K/mm3 (0.1-0.6); MONO % 7.6 % (1.7-9.3); PLATELET COUNT 190 K/mm3 (130-400); RED BLOOD COUNT 3.31 M/mm3 (4.10-5.30); REDCELL DISTRIBUTION WIDTH-CV 12.8 % (11.5-14.5)
--- NOTE | 2022-01-31 06:15 | NUR ---
PATIENT RESTED QUIETLY THIS SHIFT. PATIENT RECEIVED PRN LORTAB AT BEDTIME PER HER REQUEST. PATIENT ALSO REQUESTING SLEEPING MEDICATION AT APPROX 3AM. PATIENT EDUCATED ON SIDE EFFECTS OF TAKING SLEEPING MEDICATION SO LATE IN NIGHT. PATIENT REPORTED SHE TAKES SOMETHING TO HELP HER SLEEP EVERY NIGHT. PATIENT ALSO PROVIDED EDUCATION ON PRN MEDICATION AND SHE NEEDS TO CALL FOR IT. PATIENT EXPRESSED UNDERSTANDING AND WAS THANKFUL. PATIENT NOTED TO BE AWAKE AT APPROX 0530 WHEN IN TO GIVE PATIENT HER AM MEDICATION.
[2022-01-31 06:16] LABS: HEMATOCRIT 32.9 % (37.0-47.0)
[2022-01-31 06:25] LABS: CALCIUM 8.5 mg/dL (8.4-10.2); CREATININE, serum 0.61 mg/dL (0.57-1.11); POTASSIUM 3.5 mmol/L (3.5-4.5)
[2022-01-31 08:25] VITALS: BP 124/66; PULSE 67; TEMP 97.9
--- NOTE | 2022-01-31 09:00 | NUR ---
Patient is resting in bed watching TV. Alert and oriented x 4, VSS. States pain of 4 /10 in the LLE where there is cellulitis. States redness is decreased and feels improvement. Assessment completed, no other needs at this time. Call light within reach.
[2022-01-31 12:01] VITALS: BP 134/71; PULSE 61; TEMP 98
[2022-01-31 15:32] VITALS: BP 138/64; PULSE 71; TEMP 97.9
--- NOTE | 2022-01-31 18:49 | NUR ---
Patient has been stable along the day. She continues with tolerable pain (4/10) in her LLE. Refused pain meds. Eating and resting well. Continues getting antibiotics per orders. Report given to night RN.
[2022-01-31 20:28] VITALS: BP 136/63; PULSE 74; TEMP 98.2
[2022-02-01 00:20] VITALS: BP 129/65; PULSE 69; TEMP 97.8
[2022-02-01 03:32] VITALS: BP 122/64; PULSE 58; TEMP 97.5
--- NOTE | 2022-02-01 06:10 | NUR ---
PATIENT RESTED QUIETLY THIS SHIFT. PATIENT RECEIVED PRN PAIN MEDICATION AND TRAZADONE AT HS FOR SLEEP. PATIENT REPORTED SLEEPING WELL AND HOPING TO BE ABLE TO DISCHARGE TODAY.
[2022-02-01 07:03] LABS: BASO # 0.1 K/mm3 (0.0-0.2); BASO % 0.8 % (0.0-2.0); EOS # 0.1 K/mm3 (0.0-0.7); EOS % 1.4 % (0.0-4.0); GRAN # 2.9 K/mm3 (1.4-6.5); HEMOGLOBIN 10.6 g/dl (12.5-16.0); LYMPH # 2.8 K/mm3 (1.2-3.4); LYMPH % 44.1 % (20.0-51.0); MEAN CELL VOLUME 101 fl (80.0-100.0); MEAN CORPUSCULAR HEMOGLOBIN 33 pg (27-31); MEAN CORPUSCULAR HGB CONC 32 g/dl (33.0-37.0); MEAN PLATELET VOLUME 11.1 fl (7.4-10.4); MONO # 0.5 K/mm3 (0.1-0.6); MONO % 8.1 % (1.7-9.3); PLATELET COUNT 202 K/mm3 (130-400); RED BLOOD COUNT 3.25 M/mm3 (4.10-5.30); REDCELL DISTRIBUTION WIDTH-CV 12.9 % (11.5-14.5)
[2022-02-01 07:06] LABS: HEMATOCRIT 32.9 % (37.0-47.0)
[2022-02-01 07:20] LABS: CALCIUM 8.4 mg/dL (8.4-10.2); CREATININE, serum 0.58 mg/dL (0.57-1.11); POTASSIUM 3.7 mmol/L (3.5-4.5)
[2022-02-01 07:32] VITALS: BP 135/73; PULSE 67; TEMP 97.7
--- NOTE | 2022-02-01 08:32 | NUR ---
PT IN BED AT TIME OF ASSESSMENT. NO COMPLAINTS OF PAIN AT THIS TIME
[2022-02-01] MEDS ORDERED: CEPHALEXIN500 M1 PO (09:06)
[2022-02-01] MEDS ORDERED: BACTRIM DS 8001 TAB PO (09:06)
--- NOTE | 2022-02-01 09:44 | NUR ---
PT EDUCATION AND DISCHARGE PAPERWORK REVIEWED. IV REMOVED
== END 2022-02-01 10:33 | disposition home or self-care (01) ==
LOC: COL.ER 18:14 → MEDICAL 20:29
PROVIDERS: Emergency Medicine; Student in an Organized Health Care Education/Training Program; ADMIT Internal Medicine
DX: S81.802A Unspecified open wound, left lower leg, initial encounter (principal); L03.116 Cellulitis of left lower limb; E03.9 Hypothyroidism, unspecified; F41.9 Anxiety disorder, unspecified; F32.A Depression, unspecified; M32.9 Systemic lupus erythematosus, unspecified; M79.7 Fibromyalgia; G62.9 Polyneuropathy, unspecified; M54.9 Dorsalgia, unspecified; G89.29 Other chronic pain; G47.00 Insomnia, unspecified; Z79.899 Other long term (current) drug therapy; Z79.890 Hormone replacement therapy; W22.8XXA Striking against or struck by other objects, initial encounter
CPT/HCPCS: G0378; J0696; J1650; J3370; J7030; J7050

== ENCOUNTER 2022-06-11 12:55 | Emergency (ER) | payer MEDICARE, OTHER ==
[~2022-06-11] VITALS: Ht 157.5 cm; Wt 47.3 kg
[~2022-06-11 12:55] MED LIST changes: +ASPIRIN 81M81 MG/TA2 PO; +BACTRIM DS 8001 TAB PO; +CEPHALEXIN500 M1 PO; +PERCOCET 325 MG1 TA3 PO; +TIROSINT125 MC1 PO
[2022-06-11 12:58] VITALS: TEMP 97
[2022-06-11 13:23] LABS: BASO # 0.1 K/mm3 (0.0-0.2); BASO % 0.7 % (0.0-2.0); GRAN # 3.8 K/mm3 (1.4-6.5); GRAN % 52.6 % (42.2-75.2); HEMATOCRIT 38.6 % (37.0-47.0); HEMOGLOBIN 12.5 g/dl (12.5-16.0); LYMPH # 2.6 K/mm3 (1.2-3.4); LYMPH % 36.4 % (20.0-51.0); MEAN CELL VOLUME 99 fl (80.0-100.0); MEAN CORPUSCULAR HEMOGLOBIN 32 pg (27-31); MEAN CORPUSCULAR HGB CONC 32 g/dl (33.0-37.0); MEAN PLATELET VOLUME 9.9 fl (7.4-10.4); MONO # 0.7 K/mm3 (0.1-0.6); MONO % 9.6 % (1.7-9.3); PLATELET COUNT 244 K/mm3 (130-400); REDCELL DISTRIBUTION WIDTH-CV 12.8 % (11.5-14.5)
[2022-06-11 13:31] LABS: PROTHROMBIN TIME 11.2 SECONDS (9.7-12.8)
[2022-06-11 13:39] LABS: ALBUMIN 4.5 gm/dL (3.4-4.8); BILIRUBIN,TOTAL 0.8 mg/dL (0.2-1.2); CREATININE, serum 0.72 mg/dL (0.57-1.11); POTASSIUM 3.7 mmol/L (3.5-4.5); TOTAL PROTEIN 7.6 gm/dL (6.2-8.1)
[2022-06-11 14:42] VITALS: BP 155/77; PULSE 69
== END 2022-06-11 14:40 | disposition home or self-care (01) ==
LOC: COL.ER 12:55
PROVIDERS: Nurse Practitioner
DX: S06.5XAD Traumatic subdural hemorrhage with loss of consciousness status unknown, subsequent encounter (principal); W18.30XD Fall on same level, unspecified, subsequent encounter

== ENCOUNTER → 2022-06-14 | Outpatient (CLI) | payer MEDICARE, OTHER | LOC: COL.RAD 13:00 | DX: M19.072 Primary osteoarthritis, left ankle and foot (principal) | CPT/HCPCS: J3301; Q9967 ==

== ENCOUNTER 2022-08-09 13:45 | Outpatient (RCR) | payer MEDICARE, OTHER | END 2022-08-12 | disposition home or self-care (01) | LOC: PT.GENESIS | DX: S06.5XAA Traumatic subdural hemorrhage with loss of consciousness status unknown, initial encounter (principal); F01.50 Vascular dementia, unspecified severity, without behavioral disturbance, psychotic disturbance, mood disturbance, and anxiety ==

== ENCOUNTER 2022-08-17 13:49 | Outpatient (RCR) | payer MEDICARE, OTHER | END 2022-09-06 13:21 | disposition home or self-care (01) | LOC: PT.GENESIS 13:49 | DX: S06.5XAD Traumatic subdural hemorrhage with loss of consciousness status unknown, subsequent encounter (principal); F01.50 Vascular dementia, unspecified severity, without behavioral disturbance, psychotic disturbance, mood disturbance, and anxiety; R26.81 Unsteadiness on feet; X58.XXXD Exposure to other specified factors, subsequent encounter ==

== ENCOUNTER 2023-01-11 13:45 | Outpatient (RCR) | payer MEDICARE, OTHER | END 2023-01-12 | disposition home or self-care (01) | LOC: PT.GENESIS | DX: M17.11 Unilateral primary osteoarthritis, right knee (principal) ==

== ENCOUNTER 2023-01-18 13:51 | Outpatient (RCR) | payer MEDICARE, OTHER | END 2023-02-11 | disposition home or self-care (01) | LOC: PT.GENESIS | DX: M17.11 Unilateral primary osteoarthritis, right knee (principal); Z96.651 Presence of right artificial knee joint ==

== ENCOUNTER → 2023-06-05 | Outpatient (CLI) | payer MEDICARE, OTHER | LOC: MC.RAD 13:56 | DX: Z12.31 Encounter for screening mammogram for malignant neoplasm of breast (principal) ==

== ENCOUNTER → 2023-07-06 | Outpatient (CLI) | payer MEDICARE | LOC: COL.RAD 10:45 | DX: R26.81 Unsteadiness on feet (principal); R41.82 Altered mental status, unspecified ==